=== PATIENT | male | born 1995 | race Caucasian/White ===

== ENCOUNTER 2019-09-24 11:27 | Emergency (ER) | payer OTHER ==
[2019-09-24] MEDS ORDERED: Albuterol 0.083% 2.5 MG/3 ML Neb Soln NEB ONE (12:01)
--- NOTE | 2019-09-24 12:08 | EDM.PDOC ---
<ZoeRoland R - Last Filed: 09/24/19 11:59> ED HPI GENERAL MEDICAL PROBLEM - General Chief Complaint: Bite:Animal, Insect Stated Complaint: [facility] Time Seen by Provider: 09/24/19 11:37 Source of Information: Reports: Patient History Limitations: Reports: No Limitations - History of Present Illness INITIAL COMMENTS - FREE TEXT/NARRATIVE: Edmundo is a 24 YO male presenting to the ED for an allergic reaction to a bee sting. Approximately two hours ago, he was stung by a bee in the left bicep. He began experiencing difficulty breathing while driving to the clinic in [place], [place]. Self administered prescribed Epi-pen at this time. Clinic administered Benadryl and transferred patient by ambulance to [place]. EMS personal treated patient with Solumedrol and 2 breathing treatments. Currently complains of nasal congestion and slight difficulty breathing. 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 Past episodes cause nasal congestion, profuse itching, and difficulty breathing. Onset: Sudden Onset Date: 09/24/19 Onset Time: 10:00 Duration: Hour(s): Location: Reports: Upper Extremity, Left Improves with: Reports: Medication Treatments ADULT SERVICES LIBRARIAN: Reports: Breathing Treatments, Other (see below) Other Treatments ADULT SERVICES LIBRARIAN: benadryl,epi,solumedrol Left Upper Arm Pain Score (Numeric/FACES): 4 - Related Data Allergies Allergy/AdvReac Type Severity Reaction Status Date / Time bees Allergy Severe Anaphylactic Uncoded 09/24/19 11:42 Shock Home Meds: Home Meds EPINEPHrine [Epinephrine] 0.3 mg IJ ASDIRECTED PRN #1 auto.injct 09/24/19 [Rx] Energy Relief 2 tab PO DAILY 09/24/19 [History] Multivitamin [Multivitamins] 1 cap PO DAILY 09/24/19 [History] predniSONE 20 mg PO ASDIRECTED #15 tab 09/24/19 [Rx] Past Medical History Respiratory History: Reports: Other (See Below) Other Respiratory History: seasonal allergies- grain dust Neurological History: Reports: Other (See Below) Other Neuro History: encephalitis Social & Family History - Tobacco Use Smoking Status *Q: Current Every Day Smoker Years of Tobacco use: 10 Packs/Tins Daily: 0.5 - Caffeine Use Caffeine Use: Reports: Coffee, Energy Drinks, Soda, Tea - Recreational Drug Use Recreational Drug Use: No ED ROS GENERAL - Review of Systems Review Of Systems: See Below HEENT: Reports: Other (Nasal congestion.) Respiratory: Reports: Shortness of Breath. Denies: Wheezing Cardiovascular: Denies: Chest Pain, Lightheadedness GI/Abdominal: Denies: Diarrhea, Nausea, Vomiting Skin: Reports: Wound (Pain on left bicep at sting stie and left inner thigh wher e Epi-pen was administered. ) ED EXAM, ANIMAL BITE - Physical Exam Exam: See Below Exam Limited By: No Limitations General Appearance: Alert, No Apparent Distress Respiratory/Chest: No Respiratory Distress, Lungs Clear, Normal Breath Sounds Cardiovascular: Regular Rate, Rhythm Departure - Departure Disposition: Home, Self-Care 01 Clinical Impression: Anaphylactic reaction - Discharge Information Prescriptions: EPINEPHrine [Epinephrine] 0.3 mg IJ ASDIRECTED PRN #1 auto.injct PRN Reason: anaphylaxis Instructions: Anaphylactic Reaction, Adult, [id number] Referrals: PCP,None [Primary Care Provider] - Forms: ED Department Discharge Additional Instructions: You were evaluated in the ER today for your anaphylactic type reaction to the bee sting earlier today. You were given a combination of medications to help relieve some of your symptoms. These seemed to provide you pretty good relief. You have been provided with a script for a refill of your epi-pen, and a prescription for prednisone. Please take the prednisone as directed. You can also try over the counter famotidine (Pepcid) or diphenhydramine (Bendaryl) for further relief from itching. You may take per recruiting associate's dos ing guidelines on the back of the box. Please return to the ER if your symptoms should change or worsen. Sepsis Event Note (ED) - Evaluation Sepsis Screening Result: No Definite Risk <Ivelisse Mckenna - Last Filed: 09/24/19 13:10> Course - Vital Signs Last Recorded V/S: Last Vital Signs Temp 99.0 F 09/24/19 11:32 Pulse 102 H 09/24/19 11:32 Resp 20 09/24/19 11:32 BP 127/83 09/24/19 11:32 Pulse Ox 94 L 09/24/19 12:01 - Orders/Labs/Meds Orders: Active Orders 24 hr Category Date Time Status RT Aerosol Therapy [RC] ASDIRECTED Care 09/24/19 12:01 Ordered Meds: Medications Discontinued Medications Generic Name Dose Route Start Last Admin Trade Name Vince PRN Reason Stop Dose Admin Albuterol 2.5 mg 09/24/19 12:01 09/24/19 12:09 Proventil Neb Soln NEB 09/24/19 12:02 2.5 mg ONETIME ONE Administration - Re-Assessments/Exams Free Text/Narrative Re-Assessment/Exam: 09/24/19 12:22 I have read and reviewed the student's HPI and examined the patient and agree with MISTY John-student. Have ordered another albuterol nebulizer for management and will observe him in the ER for a couple hours. 09/24/19 13:03 Patient was re-assessed at bedside, and states that he is feeling better and would like to go home. Will discharge him home with a course of prednisone and a refill of his epi-pen. Departure - Departure Time of Disposition: 13:04 Condition: Good - Discharge Information *PRESCRIPTION DRUG MONITORING PROGRAM REVIEWED*: No *COPY OF PRESCRIPTION DRUG MONITORING REPORT IN PATIENT DEONTE: No Sepsis Event Note (ED) - Focused Exam Vital Signs: Vital Signs Temp Pulse Resp BP Pulse Ox Pulse Ox 09/24/19 12:01 94 L 09/24/19 11:32 99.0 F 102 H 20 127/83 95 - My Orders Last 24 Hours: My Active Orders 09/24/19 12:01 RT Aerosol Therapy [RC] ASDIRECTED - Assessment/Plan Last 24 Hours: My Active Orders 09/24/19 12:01 RT Aerosol Therapy [RC] ASDIRECTED
== END 2019-09-24 13:45 | disposition home or self-care (01) ==
LOC: JD.ED 11:27
DX: T63.441A Toxic effect of venom of bees, accidental (unintentional), initial encounter (principal); T78.2XXA Anaphylactic shock, unspecified, initial encounter; F17.210 Nicotine dependence, cigarettes, uncomplicated
CPT/HCPCS: 94640; 99283; 99284-25

== ENCOUNTER 2020-08-06 18:32 | Emergency (ER) | payer OTHER ==
[2020-08-06] MEDS ORDERED: EPINEPHrine 1 MG/ML SDV IM ONE (18:52)
[2020-08-06] MEDS ORDERED: methylPREDNISolone Sodium Succinate 125 MG/2 ML SDV IVPUSH ONE (18:52)
[2020-08-06] MEDS ORDERED: Famotidine 20 MG/2 ML SDV IVPUSH ONE (18:52)
[2020-08-06] MEDS ORDERED: diphenhydrAMINE 50 MG/ML SDV IVPUSH ONE (18:53)
[2020-08-06] MEDS ORDERED: Albuterol/Ipratropium 3.0-0.5 MG/3 ML Neb Soln NEB ONE ×2 (18:55→19:48)
--- NOTE | 2020-08-06 19:25 | EDM.PDOC ---
ED HPI GENERAL MEDICAL PROBLEM - General Chief Complaint: Allergic Reaction Stated Complaint: STUNG BY BEE THROAT SWELLING Time Seen by Provider: 08/06/20 18:50 Source of Information: Reports: Patient, RN Notes Reviewed History Limitations: Reports: No Limitations - History of Present Illness INITIAL COMMENTS - FREE TEXT/NARRATIVE: Patient is a 25-year-old male presenting to the emergency department with complaints of allergic reaction. Reports he was stung by a bee in the arm approximately 45 minutes prior to coming to the ER. 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 He reports that his airway feels tight and he has been wheezing. His lips are swollen, however he states this has improved. He does have an EpiPen with him, however he did not use it. Reports that he saves it for "when he is actively dying ". Chest Pain Score (Numeric/FACES): 6 - Related Data Allergies Allergy/AdvReac Type Severity Reaction Status Date / Time bees Allergy Severe Anaphylactic Uncoded 08/06/20 18:40 Shock Home Meds: Home Meds EPINEPHrine [Epinephrine] 0.3 mg IJ ASDIRECTED PRN #1 auto.injct 09/24/19 [Rx] Famotidine [Pepcid] 20 mg PO BID 5 Days #10 tab 08/06/20 [Rx] predniSONE [Prednisone] 20 mg PO ASDIRECTED #15 tablet 08/06/20 [Rx] Past Medical History - Past Health History Medical/Surgical History: Denies Medical/Surgical History HEENT History: Reports: None Cardiovascular History: Reports: None Respiratory History: Reports: Other (See Below) Other Respiratory History: seasonal allergies- grain dust Gastrointestinal History: Reports: None Genitourinary History: Reports: None Musculoskeletal History: Reports: None Neurological History: Reports: Other (See Below) Other Neuro History: encephalitis Psychiatric History: Reports: None Endocrine/Metabolic History: Reports: None Hematologic History: Reports: None Immunologic History: Reports: None Oncologic (Cancer) History: Reports: None Dermatologic History: Reports: None - Infectious Disease History Infectious Disease History: Reports: Chicken Pox, Mumps - Past Surgical History Head Surgeries/Procedures: Reports: None HEENT Surgical History: Reports: Tonsillectomy Social & Family History - Family History Family Medical History: No Pertinent Family History Cardiac: Reports: Pacemaker Hematologic: Reports: Anemia - Tobacco Use Tobacco Use Status *Q: Current Every Day Tobacco User Years of Tobacco use: 7 Packs/Tins Daily: 0.5 - Caffeine Use Caffeine Use: Reports: Coffee, Energy Drinks, Soda - Recreational Drug Use Recreational Drug Use: No ED ROS ALLERGIC REACTION - Review of Systems Review Of Systems: See Below Constitutional: Reports: No Symptoms HEENT: Reports: Other (eye, lip, and tongue swelling.) Respiratory: Reports: Wheezing, Other ("Chest tightness ") Cardiovascular: Reports: No Symptoms Endocrine: Reports: No Symptoms GI/Abdominal: Reports: No Symptoms : Reports: No Symptoms Musculoskeletal: Reports: No Symptoms Skin: Reports: No Symptoms Neurological: Reports: No Symptoms Psychiatric: Reports: No Symptoms Hematologic/Lymphatic: Reports: No Symptoms Immunologic: Reports: No Symptoms ED EXAM GENERAL NO PERIP PULSE - Physical Exam Exam: See Below Exam Limited By: No Limitations General Appearance: Alert, WD/WN, No Apparent Distress Ears: Other (Periorbital edema) Throat/Mouth: Other (Edematous lips and tongue.) Respiratory/Chest: No Respiratory Distress, Normal Breath Sounds, No Accessory Muscle Use, Chest Non-Tender, Wheezing (Expiratory throughout) Cardiovascular: Normal Peripheral Pulses, Regular Rate, Rhythm, No Edema, No Gallop, No JVD, No Murmur, No Rub Neurological: Alert, Oriented, CN II-XII Intact, Normal Cognition, Normal Gait, Normal Reflexes, No Motor/Sensory Deficits Psychiatric: Normal Affect, Normal Mood Course - Vital Signs Last Recorded V/S: Last Vital Signs Temp 97.1 F 08/06/20 18:44 Pulse 97 08/06/20 18:44 Resp 20 08/06/20 18:44 BP 148/81 H 08/06/20 18:44 Pulse Ox 97 08/06/20 19:57 - Orders/Labs/Meds Meds: Medications Discontinued Medications Generic Name Dose Route Start Last Admin Trade Name Freq PRN Reason Stop Dose Admin Albuterol/Ipratropium 3 ml 08/06/20 18:55 08/06/20 19:11 Albuterol/Ipratropium 3.0-0.5 Mg/3 Ml Neb Soln NEB 08/06/20 18:56 3 ml ONETIME ONE Administration Albuterol/Ipratropium 3 ml 08/06/20 19:48 08/06/20 19:57 Albuterol/Ipratropium 3.0-0.5 Mg/3 Ml Neb Soln NEB 08/06/20 19:49 3 ml ONETIME ONE Administration Diphenhydramine HCl 50 mg 08/06/20 18:53 08/06/20 19:05 Diphenhydramine 50 Mg/Ml Sdv IVPUSH 08/06/20 18:54 50 mg ONETIME ONE Administration Epinephrine HCl 0.3 mg 08/06/20 18:52 08/06/20 19:05 Epinephrine 1 Mg/Ml Sdv IM 08/06/20 18:53 0.3 mg ONETIME ONE Administration Famotidine 20 mg 08/06/20 18:52 08/06/20 19:05 Famotidine 20 Mg/2 Ml Sdv IVPUSH 08/06/20 18:53 20 mg ONETIME ONE Administration Methylprednisolone Sodium Succinate 125 mg 08/06/20 18:52 08/06/20 19:04 Methylprednisolone Sodium Succinate 125 Mg/2 Ml Sdv IVPUSH 08/06/20 18:53 125 mg ONETIME ONE Administration - Re-Assessments/Exams Free Text/Narrative Re-Assessment/Exam: Patient is a 25-year-old male presenting to the emergency department with compl aints of airway tightness, swelling of his lips and eyes, and burning in his chest. He has history of anaphylactic reaction to bee stings and was stung in his arm approximate 45 minutes ago. He did not use his EpiPen. On exam, he does have diffuse swelling of his lips eyes, and tongue. His notable expiratory wheezes throughout his lung mercer. I have ordered epinephrine 0.3 mg IM, Solu-Medrol, Pepcid, Benadryl, and DuoNeb. 08/06/201949 Patient's symptoms have improved immensely, however he states his chest still feels a little tight. I have ordered a second DuoNeb treatment. Lung sounds are currently clear to auscultation however. 08/06/202124 Patient is feeling much better. Lung sounds are clear to auscultation. We will discharge him home with a prescription for prednisone and Pepcid. Discharge instructions as documented. Departure - Departure Time of Disposition: 21:32 Disposition: Home, Self-Care 01 Condition: Good Clinical Impression: Anaphylactic reaction Qualifiers: Encounter type: initial encounter Qualified Code(s): T78.2XXA - Anaphylactic shock, unspecified, initial encounter - Discharge Information *PRESCRIPTION DRUG MONITORING PROGRAM REVIEWED*: No *COPY OF PRESCRIPTION DRUG MONITORING REPORT IN PATIENT DEONTE: No Prescriptions: Famotidine [Pepcid] 20 mg PO BID 5 Days #10 tab predniSONE [Prednisone] 20 mg PO ASDIRECTED #15 tablet Instructions: Anaphylactic Reaction, Adult, [id number] Referrals: PCP,None [Primary Care Provider] - Forms: ED Department Discharge Additional Instructions: You were seen in the emergency department today for allergic reaction after being stung by a bee. While in the ER, you received epinephrine, Solu-Medrol, Pepcid, and Benadryl. This did significantly improve your symptoms. A prescription for prednisone and Pepcid has been sent to [place] pharmacy. Take these medications as prescribed. You may continue to use Benadryl 50 mg every 4 hours as needed. If you should experience any new or worsening symptoms, please not hesitate to return to the emergency department for reevaluation. Sepsis Event Note (ED) - Evaluation Sepsis Screening Result: No Definite Risk
== END 2020-08-06 21:42 | disposition home or self-care (01) ==
LOC: JD.ED 18:32
DX: T78.2XXA Anaphylactic shock, unspecified, initial encounter (principal); Z72.0 Tobacco use; Z91.030 Bee allergy status
CPT/HCPCS: 94640; 96372; 96374; 96375; 99284; J0171; J1200; J2930; J3490; 99283; J7620-GY